=== PATIENT | female | born 1940 | race Caucasian/White ===

== ENCOUNTER → 2016-12-22 | Outpatient (CLI) | payer MEDICARE ==
--- NOTE | 2016-12-22 15:50 | XR ---
EXAMINATION TYPE: XR shoulder complete LT DATE OF EXAM: 12/22/2016 COMPARISON: NONE HISTORY: Pain TECHNIQUE: Shoulder examined in 3 views FINDINGS: The humeral head articulates with the glenoid. The acromio-clavicular junction is normal. No acute fractures or dislocations are evident. Appears to be some increased sclerosis within the humerus with subchondral cysts or lytic areas withi n the proximal humerus. Correlate with the patient's history. Metastatic lesion is not excluded. Cons ider nuclear medicine whole body bone scan for additional evaluation A follow up study can be performed 7-10 days from acute trauma for continued pain. IMPRESSION: 1. Some sclerosis and lytic areas within the proximal humerus. Metastasis is not excluded. Whole body bone scan imaging may be useful for additional evaluation
== END | disposition home or self-care (01) ==
LOC: RADXRMAIN 08:11
PROVIDERS: ATTEND Internal Medicine
DX: M89.8X1 Other specified disorders of bone, shoulder (principal); M25.512 Pain in left shoulder

== ENCOUNTER → 2017-01-05 | Outpatient (CLI) | payer MEDICARE ==
--- NOTE | 2017-01-06 10:52 | EST ---
DATE OF SERVICE: 01/05/2017 EXERCISE STRESS TEST INDICATION: Difficulty in breathing. BASELINE HEART RATE: 88 BASELINE BLOOD PRESSURE: 141/86 MAXIMUM HEART RATE: 138 MAXIMUM BLOOD PRESSURE: 151/87 85% MPHR: 123 100% MPHR: 146 METS: 5 MAXIMUM STAGE REACHED: I TOTAL EXERCISE TIME: 3-1/2 minutes Baseline EKG shows sinus rhythm, normal axis, normal intervals. The patient exercised on Guru protocol for a total of 3-1/2 minutes achieving 5 METs, 94% of predicted maximum heart rate without chest pain or diagnostic ST segment depression. CONCLUSIONS: 1. Poor exercise tolerance. 2. Negative stress test by EKG criteria. MTDD
== END | disposition home or self-care (01) ==
LOC: RADNMMAIN 09:55
PROVIDERS: ATTEND Internal Medicine
DX: R07.9 Chest pain, unspecified (principal)
CPT/HCPCS: 93017

== ENCOUNTER → 2017-01-13 | Outpatient (CLI) | payer MEDICARE ==
--- NOTE | 2017-01-13 16:27 | NM ---
EXAMINATION TYPE: NM bone scan whole body DATE OF EXAM: 01/13/2017 COMPARISON: Radiographs 12/22/2016. Correlation MRI lumbar spine 03/06/2016. HISTORY: 76-year-old female abnormal findings, left shoulder pain for one month Technique: Delayed whole-body scanning was performed following the injection of 26.8 mCi Tc 99m MDP. Images acquired 4.75 hours post injection with both anterior and posterior projections. FINDINGS: There is long segment intense activity within the proximal half of the left humerus. There is similar intense activity involving the right ilium. Degenerative uptake seen at both sternoclavicular joints and AC joints. Additional degenerative activ ity at the knees and the bilateral hindfeet. Uptake at the L2-L3 level seems to correspond to disc/endplate degenerative change seen on 03/06/2016 M RI. Additional increased uptake seen within the mid thoracic vertebral body. IMPRESSION: 1. Intense activity involving the proximal half of the left humerus. Exact etiology is not clear at t his time. 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 Recommend radiographic evaluation of the pelvis to assess for bony expan otilio as well as cortical and trabecular thickening. 2. Consider radiographic or MRI evaluation of the thoracic spine given focal uptake of a midthoracic vertebral body. Degenerative or posttraumatic activity is favored. 3. Uptake at the L2-L3 level seems to correspond to advanced degenerative disc disease when correlate d with 03/06/2016 MRI. 4. Additional scattered degenerative uptake as above.
== END | disposition home or self-care (01) ==
LOC: RADNMMAIN 10:20
PROVIDERS: ATTEND Internal Medicine
DX: R93.7 Abnormal findings on diagnostic imaging of other parts of musculoskeletal system (principal)
CPT/HCPCS: 78306; A9503

== ENCOUNTER → 2017-01-25 | Outpatient (CLI) | payer MEDICARE ==
--- NOTE | 2017-01-25 15:29 | XR ---
AP pelvis HISTORY: Pain in hips Single frontal view of the pelvis submitted and correlated to bone scan 01/13/2017, left shoulder 12/22 Bone mineralization is mildly reduced with the exception of increased density in the right ilium. Tra becular lines is somewhat coarsened, there is some cortical thickening of the right ilium. Joint spac es and alignment are maintained. No fracture or dislocation. Probable vascular calcifications present within the pelvis. Degenerative disc change suspected in the lower lumbar spine. 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 Osteopenia could limit sensitivity, additional findings above.
--- NOTE | 2017-01-25 16:02 | XR ---
EXAMINATION TYPE: XR thoracic spine complete DATE OF EXAM: 01/25/2017 COMPARISON: NONE HISTORY: 76-year-old female R93.7, mid back pain for 2 months. TECHNIQUE: 3 views FINDINGS: 12 rib-bearing thoracic vertebral bodies. All pedicles are visualized. There is moderate endplate spo ndylosis especially in the mid thoracic spine. Vertebral body heights are preserved and alignment is seen. IMPRESSION: Moderate disc/endplate degenerative change particularly in the mid lumbar spine. No vertebral fatuma otilio collapse or malalignment.
== END | disposition home or self-care (01) ==
LOC: RADXRMAIN 13:03
PROVIDERS: ATTEND Internal Medicine
DX: M85.80 Other specified disorders of bone density and structure, unspecified site (principal)
CPT/HCPCS: 72072; 72170

== ENCOUNTER → 2017-03-10 | Outpatient (CLI) | payer MEDICARE ==
[2017-03-10 10:16] LABS: Appearance,Urine Clear (Clear); Basophils % (A) 0 %; Bilirubin,Urine Negative (Negative); CH 31.3; CHCM 35.9; Eosinophils # (A) 0.1 k/uL (0-0.7); Eosinophils % (A) 1 %; Glucose,Urine (UA) Negative (Negative); HCT 40.8 % (34.0-46.0); HDW 2.66; Ketones,Urine Negative (Negative); Leukocyte Esterase,Urine Negative (Negative); Luc # (Auto) 0.17; Luc % (Auto) 3; Lymphocytes # (A) 0.7 k/uL (1.0-4.8); Lymphocytes % (A) 13 %; MCH 30.1 pg (25.0-35.0); MCHC 34.3 g/dL (31.0-37.0); MCV 87.6 fL (80.0-100.0); Mean Platelet Volume 7.7; Monocytes # (A) 0.6 k/uL (0-1.0); Monocytes % (A) 11 %; Neutrophils # (A) 3.7 k/uL (1.3-7.7); Neutrophils % (A) 71 %; Nitrite,Urine Negative (Negative); PH, Urine 7.5 (5.0-8.0); Protein,Urine Negative (Negative); RBC 4.66 m/uL (3.80-5.40); RDW 14.8 % (11.5-15.5); UA Billing (MACRO vs. MICRO) CHEM; Urobilinogen,Urine <2.0 mg/dL (<2.0); WBC 5.2 k/uL (3.8-10.6); WBC (Perox) 5.52
[2017-03-10 10:38] LABS: ALT 50 U/L (9-52); AST 51 U/L (14-36); Alkaline Phosphatase 114 U/L (38-126); Anion Gap 8 mmol/L; Blood Urea Nitrogen 12 mg/dL (7-17); Calcium 9.2 mg/dL (8.4-10.2); Carbon Dioxide 28 mmol/L (22-30); Chloride 95 mmol/L (98-107); Cholesterol 173 mg/dL (<200); Creatine Kinase 147 U/L (30-135); Glucose 84 mg/dL (74-99); HDL Cholesterol 29 mg/dL (40-60); Non-African American GFR(MDRD) >60 (>60 ml/min/1.73 sqM); Potassium 4.3 mmol/L (3.5-5.1); Sodium 131 mmol/L (137-145); Total Bilirubin 0.6 mg/dL (0.2-1.3); Total Protein 6.3 g/dL (6.3-8.2); Uric Acid 5.3 mg/dL (3.7-7.4)
[2017-03-10 11:26] LABS: Hemoglobin A1C 5.5 % (4.2-6.1)
== END | disposition home or self-care (01) ==
LOC: LABWHC1 09:24
PROVIDERS: ATTEND Internal Medicine
DX: E55.9 Vitamin D deficiency, unspecified (principal); I10 Essential (primary) hypertension; E78.5 Hyperlipidemia, unspecified; M88.89 Osteitis deformans of multiple sites; E03.9 Hypothyroidism, unspecified
CPT/HCPCS: 36415; 80053; 80061; 81003; 82306; 82550; 83036; 84439; 84443; 84550; 85025

== ENCOUNTER → 2018-03-04 | Outpatient (CLI) | payer MEDICARE ==
[2018-03-04 09:18] LABS: Basophils # (A) 0.1 k/uL (0-0.2); Basophils % (A) 1 %; Eosinophils # (A) 0.2 k/uL (0-0.7); Eosinophils % (A) 3 %; HCT 41.7 % (34.0-46.0); HGB 13.7 gm/dL (11.4-16.0); Lymphocytes % (A) 27 %; MCH 29.1 pg (25.0-35.0); MCHC 32.8 g/dL (31.0-37.0); MCV 88.7 fL (80.0-100.0); Monocytes # (A) 0.5 k/uL (0-1.0); Monocytes % (A) 7 %; Neutrophils # (A) 4.4 k/uL (1.3-7.7); Neutrophils % (A) 60 %; Platelet Count 197 k/uL (150-450); RDW 13.9 % (11.5-15.5); WBC 7.2 k/uL (3.8-10.6)
[2018-03-04 11:06] LABS: Erythrocyte Sedimentation Rate 11 mm/hr (0-20)
== END | disposition home or self-care (01) ==
LOC: LABWHC1 08:15
PROVIDERS: ATTEND Internal Medicine
DX: I10 Essential (primary) hypertension (principal); M15.9 Polyosteoarthritis, unspecified
CPT/HCPCS: 36415; 85025; 85652

== ENCOUNTER → 2018-03-16 | Outpatient (CLI) | payer MEDICARE ==
[2018-03-16 11:52] LABS: ALT 48 U/L (9-52); AST 34 U/L (14-36); Albumin 4.2 g/dL (3.5-5.0); Alkaline Phosphatase 47 U/L (38-126); Anion Gap 9 mmol/L; Blood Urea Nitrogen 20 mg/dL (7-17); Calcium 9.6 mg/dL (8.4-10.2); Carbon Dioxide 28 mmol/L (22-30); Chloride 101 mmol/L (98-107); Cholesterol 195 mg/dL (<200); Creatine Kinase 236 U/L (30-135); Glucose 96 mg/dL (74-99); HDL Cholesterol 40 mg/dL (40-60); LDL Cholesterol,Calculated 133 mg/dL (0-99); Potassium 4.4 mmol/L (3.5-5.1); Sodium 138 mmol/L (137-145); Total Bilirubin 0.6 mg/dL (0.2-1.3); Total Protein 6.6 g/dL (6.3-8.2); Triglycerides 109 mg/dL (<150); Uric Acid 5.5 mg/dL (3.7-7.4)
[2018-03-16 12:08] LABS: T4, Free (Free Thyroxine) 0.94 ng/dL (0.78-2.19)
[2018-03-16 18:54] LABS: Hemoglobin A1C 5.3 % (4.0-6.0)
== END | disposition home or self-care (01) ==
LOC: LABWHC1 10:13
PROVIDERS: ATTEND Internal Medicine
DX: Z00.00 Encounter for general adult medical examination without abnormal findings (principal); E55.9 Vitamin D deficiency, unspecified; E78.5 Hyperlipidemia, unspecified; E03.9 Hypothyroidism, unspecified; M15.9 Polyosteoarthritis, unspecified
CPT/HCPCS: 36415; 80053; 80061; 82306; 82550; 83036; 84439; 84443; 84550

== ENCOUNTER → 2018-11-14 | Outpatient (CLI) | payer MEDICARE ==
--- NOTE | 2018-11-14 08:44 | US ---
EXAMINATION TYPE: US pelvic complete DATE OF EXAM: 11/14/2018 COMPARISON: X ray CLINICAL HISTORY: R10.2 Pelvic Pain. bilateral pelvic pain upon physician palpation, RT side greater than left pelvis; c section delivery, menopause in early 40's; inactive Paget's Disease per patient TECHNIQUE: Transvaginal (TV). Transvaginal sonographic images were medically necessary to better ass ess the following anatomy: ovaries, and bladder not fully prepped for TA US. Date of LMP: early 40's EXAM MEASUREMENTS: Uterus: 5.8 x 5.9 x 3.9 cm Endometrial Stripe: 1.2 cm Right Ovary: 2.6 x 1.5 x 2.5 cm Left Ovary: 2.2 x 1.8 x 1.8 cm 1. Uterus: Anteverted; heterogeneous diffusely with no measurable heterogenous oval mass measuring 4 .0 x 4.0 x 4.4cm; probable complex nabothian cysts in cervix with largest = 1.1 x 0.9 x 0.8cm. 2. Endometrium: Difficult to delineate given the diffuse myometrial heterogeneity, however this appea rs thickened for post menopause with possible fluid level galvan 3. Right Ovary: complex area measured with non discreet borders. This could represent the right ovar y that is inseparable with the uterus or a pedunculated uterine leiomyoma. 4. Left Ovary: heterogeneous oval area measured with possible internal cystic components the largest measuring 1.1 x 0.9x 0.8cm. Again this may represent a pedunculated uterine leiomyoma or the left ov carmen. 5. Bilateral Adnexa: wnl 6. Posterior cul-de-sac: wnl IMPRESSION: The uterus is diffusely heterogenous with ill-defined endometrium appearing thickened con cerning for endometrial carcinoma or hyperplasia. Ovaries are not clearly separable from the heteroge nous uterus as complex areas are seen that could represent pedunculated leiomyomas or complex ovaries that could be more clearly defined on enhanced pelvic MR. Given the diffuse heterogeneity with only 1 discrete probable leiomyoma measurable, leiomyosarcoma should also be considered.
== END | disposition home or self-care (01) ==
LOC: RADUSWWP 06:41
PROVIDERS: ATTEND Obstetrics & Gynecology
DX: R93.89 Abnormal findings on diagnostic imaging of other specified body structures (principal); R10.2 Pelvic and perineal pain
CPT/HCPCS: 76830

== ENCOUNTER → 2018-11-18 | Outpatient (CLI) | payer MEDICARE | END | disposition home or self-care (01) | LOC: LABWHC1 08:38 | PROVIDERS: ATTEND Obstetrics & Gynecology | DX: D25.9 Leiomyoma of uterus, unspecified (principal); N83.9 Noninflammatory disorder of ovary, fallopian tube and broad ligament, unspecified; R93.89 Abnormal findings on diagnostic imaging of other specified body structures | CPT/HCPCS: 36415; 86304 ==

== ENCOUNTER → 2018-11-23 | Outpatient (CLI) | payer MEDICARE ==
--- NOTE | 2018-11-24 07:24 | MR ---
EXAMINATION TYPE: MR pelvis wo/w con DATE OF EXAM: 11/23/2018 COMPARISON: None HISTORY: Uterine Fibroids / Pelvic Pain CONTRAST: Standard multiplanar, multisequence MRI departmental protocol utilizing 9.5 mL intravenous Gadavist g adolinium contrast. FINDINGS: Uterus is enlarged. There is heterogeneous rounded mass on the left side of the uterus with predominantly low signal on T2 images consistent with a fibroid. This measures 5 cm. There is also a similar appearing submucosal low signal 1.2 cm mass expanding into the endometrial cavity consistent with submucosal fibroid. There is a 1 cm cervical cyst. Bladder distends smoothly. I see no free flu id in the pelvis. I see no adnexal mass. The contrast images show no pathologic enhancement. IMPRESSION: Large uterine fibroid on the left side of the uterus. Submucosal fibroid. No adnexal mass or free flu id.
== END | disposition home or self-care (01) ==
LOC: RADMRIMAIN 14:55
PROVIDERS: ATTEND Obstetrics & Gynecology
DX: D25.0 Submucous leiomyoma of uterus (principal)
CPT/HCPCS: 72197; A9585

== ENCOUNTER → 2018-12-12 | Outpatient (CLI) | payer MEDICARE ==
[2018-12-12 10:30] LABS: Basophils # (A) 0.1 k/uL (0-0.2); Basophils % (A) 1 %; Eosinophils # (A) 0.2 k/uL (0-0.7); Eosinophils % (A) 3 %; HCT 40.5 % (34.0-46.0); HGB 13.8 gm/dL (11.4-16.0); Lymphocytes # (A) 1.8 k/uL (1.0-4.8); Lymphocytes % (A) 23 %; MCHC 34.1 g/dL (31.0-37.0); MCV 85.1 fL (80.0-100.0); Mean Platelet Volume 7.6; Monocytes # (A) 0.6 k/uL (0-1.0); Monocytes % (A) 8 %; Neutrophils % (A) 64 %; Platelet Count 197 k/uL (150-450); RBC 4.76 m/uL (3.80-5.40); RDW 14.8 % (11.5-15.5); WBC 7.8 k/uL (3.8-10.6)
== END | disposition home or self-care (01) ==
LOC: LABPAT 09:09
PROVIDERS: ATTEND Obstetrics & Gynecology
DX: Z01.812 Encounter for preprocedural laboratory examination (principal)
CPT/HCPCS: 36415; 85025; 93005

== ENCOUNTER 2018-12-19 06:16 | Day surgery (SDC) | payer MEDICARE ==
[2018-12-13 14:25] VITALS: BMI 37.8
--- NOTE | 2018-12-18 21:42 | P.HPOB ---
History of Present Illness H&P Date: 12/18/18 Chief Complaint: Endometrial thickening This is a 78-year-old female who presents for dilation and curettage with hysteroscopy secondary to endometrial thickening on ultrasound. Ultrasound showed uterus measuring 5.8 x 5.9 x 3.9 cm with an endometrial stripe thickness of 1.2 cm. Uterus was heterogenous with fibroid changes. Pelvic MRI showed uterine fibroid on the left side measuring 5 cm and a submucosal fibroid measuring 1.2 cm. Ultrasound was performed for pelvic pain. Obstetrical history: . Gynecologic history: No history of sexual transmitted diseases. Review of Systems Constitutional: Reports fatigue, Denies chills, Denies fever Eyes: denies blurred vision, denies pain Ears, nose, mouth and throat: Reports vertigo, Denies headache, Denies sore throat Cardiovascular: Reports chest pain (occ chest heaviness), Denies shortness of breath Respiratory: Denies cough Gastrointestinal: Reports constipation, Denies abdominal pain, Denies diarrhea, Denies nausea, Denies vomiting Genitourinary: Reports pelvic pain, Reports stress incontinence Musculoskeletal: Reports low back pain, Reports muscle cramps, Reports myalgias Integumentary: Denies pruritus, Denies rash Neurological: Reports numbness, Denies weakness Psychiatric: Reports anxiety, Reports change in sleep habits, Reports depression, Reports insomnia, Reports irritability Endocrine: Reports fatigue Past Medical History Past Medical History: Hyperlipidemia, Hypertension, Osteoarthritis (OA), Thyroid Disorder Additional Past Medical History / Comment(s): Hear murmur; Paget's disease History of Any Multi-Drug Resistant Organisms: None Reported Past Surgical History: Section, Cholecystectomy, Tonsillectomy Additional Past Surgical History / Comment(s): Partial Thyroidectomy Past Anesthesia/Blood Transfusion Reactions: No Reported Reaction Past Psychological History: Anxiety, Depression Smoking Status: Never smoker Past Alcohol Use History: Occasional Past Drug Use History: None Reported - Past Family History Mother Family Medical History: Cancer Additional Family Medical History / Comment(s): Larynx Medications and Allergies Home Medications Medication Instructions Recorded Confirmed Type Aspirin [Adult Low Dose Aspirin EC] 81 mg PO DAILY 12/13/18 12/13/18 History Atenolol [Tenormin] 50 mg PO DAILY 12/13/18 12/13/18 History Cholecalciferol (Vitamin D3) 2,000 unit PO DAILY 12/13/18 12/13/18 History [Vitamin D3] Fosamax (Unknown Dose) 1 tab PO Q7D 12/13/18 12/13/18 History Levothyroxine Sodium [Synthroid] 50 mcg PO DAILY 12/13/18 12/13/18 History Lisinopril-Hctz 20-25 mg 1 tab PO DAILY 12/13/18 12/13/18 History [Zestoretic 20-25] Allergies Allergy/AdvReac Type Severity Reaction Status Date / Time codeine Allergy Unknown Verified 12/13/18 14:08 Penicillins Allergy Rash/Hives Verified 12/13/18 14:08 Exam Osteopathic Statement: *. No significant issues noted on an osteopathic structural exam other than those noted in the History and Physical/Consult. HEENT: Within normal limits Heart: Regular rate and rhythm Lungs: Clear to auscultation bilaterally Abdomen: Soft, nontender Pelvic exam: Uterus is mildly tender more so on the right side. With a fullness noted in the right adnexal region. Extremities: Negative Homans Assessment and Plan (1) Endometrial thickening on ultrasound Status: Acute Code(s): R93.89 - ABNORMAL FINDINGS ON DX IMAGING OF OT BODY S TRUCTURES SNOMED Code(s): 942923447 Plan: Proceed with dilation and curettage with hysteroscopy. I have discussed the risks, benefits, and alternative therapies for the above- mentioned procedure and for both sedation/anesthesia as well as necessary blood products administration, if indicated, as they pertain to this patient. The patient has indicated her understanding and acceptance of the risks and procedures discussed.
[~2018-12-19 06:16] MED LIST: DEXAMETHASONE SOD PHOSPHATE 10 MG/ML 1 ML VIAL IV ONE; HYDROmorphone 0.5 MG/0.5 ML SYRINGE IVP PRN; LACTATED RINGERS 1,000 ML IV SCH; LIDOCAINE 1% 20 ML VIAL (10MG/ML) FOR IV START INTRADERMA PRN; MIDAZOLAM 2 MG/2 ML VIAL IV PRN; ONDANSETRON 4 MG/2 ML VIAL IVP ONE; Pre Op ABX Message 1 EACH MISC MISCELLANE ONE; SCOPOLAMINE 1.5MG/72HR PATCH TRANSDERM ONE
[2018-12-19] MEDS ORDERED: PROPOFOL 10 MG/ML 20 ML VIAL IV ONE (07:22)
[2018-12-19] MEDS ORDERED: MIDAZOLAM 2 MG/2 ML VIAL ONE (07:22)
[2018-12-19] MEDS ORDERED: fentaNYL (PF) 50 MCG/ML 2 ML AMP ONE (07:22)
[2018-12-19] MEDS ORDERED: LIDOCAINE 1% INJ 10MG/ML (20 ML MDV) ONE (07:22)
--- NOTE | 2018-12-19 08:01 | P.OP ---
Date of Procedure: 12/19/18 Preoperative Diagnosis: Endometrial thickening Postoperative Diagnosis: Same Procedure(s) Performed: Dilation and curettage with hysteroscopy Anesthesia: other (LMA general) Surgeon: Renae Cagle Estimated Blood Loss (ml): 10 Pathology: other (Endometrial curettings) Condition: stable Disposition: same day Indications for Procedure: This is a 78-year-old female who presents for dilation and curettage with hysteroscopy secondary to endometrial thickening on ultrasound. Ultrasound showed uterus measuring 5.8 x 5.9 x 3.9 cm with an endometrial stripe thickness of 1.2 cm. Uterus was heterogenous with fibroid changes. Pelvic MRI showed uterine fibroid on the left side measuring 5 cm and a submucosal fibroid measuring 1.2 cm. Ultrasound was performed for pelvic pain. Operative Findings: Uterus is bulky, mid position, with no palpable adnexal masses. Uterus is nodular upon palpation. Upon hysteroscopy, a crown endometrium appears atrophic. There is a submucosal fibroid on the right side of the uterus. Scant endometrial curettings are obtained. Description of Procedure: The patient is taken to the operating room where she is placed in the dorsal lithotomy position. She is prepped and draped in the normal sterile fashion. Her bladder is treated with a catheter. Examination is performed under anesthesia. The above noted findings are made. Next a weighted speculum was placed in the patient's vagina and she is placed in slight Trendelenburg position. A right angle retractor is used to visualize the cervix. The anterior lip of the cervix is grasped with a single-tooth tenaculum. Local os is noted to be stenotic. A hemostat is used to gently open the cervical os. Next the cervical os is slightly dilated with a Barrera dilator and then a sound was placed. Uterus is sounded to 9 cm. Cervix is then gently dilated further with Barrera dilators until a hysteroscope could be passed. Hysteroscopy is performed using normal saline. The above-noted findings are made. Pictures are taken. Next the hysteroscope was withdrawn and a medium-size sharp curet was introduced. A polyp forceps is introduced with very minimal tissue obtained. Sharp curettage was performed until a gritty texture is noted. Irregular contour is noted on the right side of the uterus consistent with a submucosal fibroid. Scant endometrial curettings are obtained. Specimen is removed from the field. Single-tooth tenaculum is removed from the anterior lip of the cervix. Minimal bleeding is noted. All incisions are removed from the vagina. All sponge counts are correct. The patient is then taken to recovery room in stable condition.
[2018-12-19 08:27] VITALS: TEMP 97.5
[2018-12-19 08:28] VITALS: RESP 16
[2018-12-19] MEDS ORDERED: KETOROLAC 30 MG/ML 1 ML VIAL IVP ONE (08:37)
[2018-12-19 09:07] VITALS: PULSE 67
[2018-12-19 09:30] VITALS: BP 117/72
== END 2018-12-19 10:00 | disposition home or self-care (01) ==
LOC: OR 06:16
PROVIDERS: ATTEND Obstetrics & Gynecology
DX: N84.0 Polyp of corpus uteri (principal); D25.0 Submucous leiomyoma of uterus; Z88.5 Allergy status to narcotic agent; Z88.0 Allergy status to penicillin; I10 Essential (primary) hypertension; E07.9 Disorder of thyroid, unspecified; Z79.82 Long term (current) use of aspirin; Z79.890 Hormone replacement therapy
CPT/HCPCS: 88305; 58558; J2250; J1100; J2405; J2001; J3010; J1885; J2704

== ENCOUNTER → 2019-03-31 | Outpatient (CLI) | payer MEDICARE ==
[2019-03-31 10:18] LABS: Basophils % (A) 1 %; Eosinophils # (A) 0.3 k/uL (0-0.7); Eosinophils % (A) 4 %; HGB 13.3 gm/dL (11.4-16.0); Lymphocytes # (A) 1.7 k/uL (1.0-4.8); Lymphocytes % (A) 24 %; MCHC 34.9 g/dL (31.0-37.0); MCV 86.1 fL (80.0-100.0); Mean Platelet Volume 7.5; Monocytes # (A) 0.4 k/uL (0-1.0); Monocytes % (A) 6 %; Neutrophils # (A) 4.6 k/uL (1.3-7.7); Neutrophils % (A) 65 %; Platelet Count 178 k/uL (150-450); RBC 4.41 m/uL (3.80-5.40); RDW 14.1 % (11.5-15.5); WBC 7.1 k/uL (3.8-10.6)
[2019-03-31 16:58] LABS: African American GFR (CKD) 101.9 (60.0-200.0); Albumin 4.1 g/dL (3.80-4.90); Albumin/Globulin Ratio 2.73 (1.60-3.17); Anion Gap 8.5 mmol/L (4.00-12.00); BUN/Creat Ratio 23.33 Ratio (12.00-20.00); Calcium 9.5 mg/dL (8.7-10.3); Carbon Dioxide 27.5 mmol/L (21.6-31.8); Chol/HDL Ratio 3.78; Globulin 1.5 g/dL (1.6-3.3); LDL Cholesterol,Calculated 105.4 mg/dL (0.0-131.0); Total Bilirubin 0.5 mg/dL (0.2-1.2); Total Protein 5.6 g/dL (6.2-8.2); VLDL Calculation 19.6 mg/dL (5.00-40.00)
[2019-03-31 21:03] LABS: Hemoglobin A1C 5.4 % (4.0-6.0)
== END | disposition home or self-care (01) ==
LOC: LABWHC1 09:36
PROVIDERS: ATTEND Internal Medicine
DX: R79.9 Abnormal finding of blood chemistry, unspecified (principal); I10 Essential (primary) hypertension; E78.5 Hyperlipidemia, unspecified
CPT/HCPCS: 36415; 80053; 80061; 83036; 84439; 84443; 85025